=== PATIENT | female | born 1980 | race Caucasian/White ===

== ENCOUNTER 2021-06-14 00:27 | Outpatient (CLI) | payer OTHER, SELFPAY ==
--- NOTE | 2021-06-14 | DI.MRI_ITS ---
Exam(s) MR PELVIS WO EXAM: MR PELVIS WO CLINICAL HISTORY: RT BUTTOCK PAIN, M79.18,FAILED PT,WORSE WITH STEPPING UP,? GLUTEUS TEAR TECHNIQUE: Multiplanar multisequence MRI of Pelvis was performed. CONTRAST MATERIAL: Noncontrast COMPARISON: No exams were available for comparison FINDINGS: Bones: There is no fracture or contusion pattern. No significant joint effusion is present. No bone marrow edema is seen. The SI joints and symphysis pubis are well maintained. Musculotendinous structures: Musculotendinous structures demonstrate no abnormality. The muscles ar e symmetric. No abnormal increased gluteal muscle signal. No hematoma. Intrapelvic structures demo nstrate no significant abnormality. Retroverted uterus. IMPRESSION: Normal MRI examination the pelvis. DATA REPOSITORY:
--- NOTE | 2021-06-14 | DI.MRI_ITS ---
Exam(s) MR LUMBAR SPINE WO EXAM: MR LUMBAR SPINE WO CLINICAL HISTORY: RT BUTTOCK PAIN, M79.18,FAILED PT,RADICULAR IN NATURE,? RADICULOPATHY,SPINA TECHNIQUE: Multiplanar multisequence MRI of the Lumbar Spine was performed. CONTRAST MATERIAL: noncontrast COMPARISON: No exams were available for comparison FINDINGS: Bones: The last intervertebral disc space is designated the L5/S1 level for the numbering purpose of this examination. The vertebral body heights are well maintained. Alignment is satisfactory. The sig nal characteristics are unremarkable. Cord: The conus tip ends at the T12 level. It is of normal size and signal intensity. T12-L1: No disc herniations or bulges are present. L1-2: No disc herniations or bulges are present. L2-3: No disc herniations or bulges are present. L3-4: Small endplate osteophytes and mild disc bulging. L4-5: Small endplate osteophytes and mild disc bulging. Mild ligamentous hypertrophy L5-S1: Asymmetric endplate osteophytes and degenerative signal changes on the right side. Mild righ t-sided neural foraminal narrowing. Broad-based central disc protrusion without definite nerve root impingement.. . Soft tissues: The visualized SI joints and sacrum are well maintained. The paraspinal soft tissues ar e unremarkable. IMPRESSION: Mild disc bulging at L3-4 and L4-5. Disc osteophytes cause mild right neural foraminal narrowing at L5-S1. A small central disc protrusi on is seen without definite nerve root impingement. DATA REPOSITORY:
== END 2021-06-14 00:47 ==
PROVIDERS: Visit Provider Internal Medicine Adolescent Medicine
DX: M79.18 Myalgia, other site (principal); M51.26 Other intervertebral disc displacement, lumbar region; M48.07 Spinal stenosis, lumbosacral region
CPT/HCPCS: 72148; 72195